=== PATIENT | female | born 1970 | race Caucasian/White ===

== ENCOUNTER 2023-01-13 07:02 | Day surgery (SDC) | payer MEDICAID ==
[~2023-01-13] VITALS: Ht 157.5 cm; Wt 62.1 kg
[2023-01-13] MEDS ORDERED: MIDAZOLAM 5 MG/5 ML VIAL ONE (07:36)
[2023-01-13] MEDS ORDERED: fentaNYL citrate 0.05 MG/ML VIAL ONE (07:36)
[2023-01-13] MEDS ORDERED: diphenhydrAMINE 50 MG/ML VIAL ONE (07:36)
[2023-01-13] MEDS ORDERED: LIDOCAINE 2% 100 MG/5 ML UJET TP ONE (07:36)
[2023-01-13] MEDS ORDERED: MIDAZOLAM 2 MG/2 ML VIAL IVP ONE (09:00)
[2023-01-13] MEDS ORDERED: fentaNYL citrate 0.05 MG/ML VIAL IVP ONE (09:00)
== END 2023-01-13 09:58 | disposition home or self-care (01) ==
LOC: MDS 07:02 → MMU 07:03 → MDS 09:58
PROVIDERS: ATTEND Internal Medicine Gastroenterology
DX: Z12.11 Encounter for screening for malignant neoplasm of colon (principal); Z80.42 Family history of malignant neoplasm of prostate; Z79.899 Other long term (current) drug therapy; Z20.822 Contact with and (suspected) exposure to COVID-19
CPT/HCPCS: 45378; 87426; J2250; J3010; J1200